=== PATIENT | male | born 1975 | race Caucasian/White ===

== ENCOUNTER 2020-10-23 10:50 | Emergency (ER) | payer OTHER, SELFPAY ==
--- NOTE | ~2020-10-23 | XR_ITS ---
EXAMINATION: XR hand LT 2V DATE: 10/23/2020 12:17 INDICATION: Postreduction second digit dislocation TECHNIQUE: Posteroanterior and lateral views of the left hand were obtained. COMPARISON: None. FINDINGS: Successful reduction of the previously dislocated left second proximal interphalangeal joint. Alignme nt is now normal. No fracture. Joint spaces are normal. Residual mild soft tissue swelling at the pro ximal aspect of the second digit. IMPRESSION: 1. Successful reduction to anatomic alignment of the left second proximal interphalangeal joint. No f racture. Reviewed, dictated and finalized at location A. ION GATEMAN IMPRESSION: 1. Successful reduction to anatomic alignment of the left second proximal inter phalangeal joint. No fracture.
--- NOTE | ~2020-10-23 | XR_ITS ---
EXAMINATION: XR hand LT min 3V DATE: 10/23/2020 11:03 INDICATION: Left index finger injury playing basketball. TECHNIQUE: Posteroanterior, oblique and lateral views of the left hand were obtained. COMPARISON: None. FINDINGS: Dorsal dislocation at the second proximal interphalangeal joint. Alignment and joint spaces are amarilis l throughout the remainder of the left hand. No evident fracture. IMPRESSION: 1. Dorsal dislocation at the left second proximal interphalangeal joint. Reviewed, dictated and finalized at location A. GE TENDER
[2020-10-23 10:55] VITALS: BP 141/83; PULSE 93; RESP 18; TEMP 36.8; O2SAT 96
--- NOTE | 2020-10-23 11:59 | ED.UPPEXIN ---
HPI - Extremity Injury (Upper) General Chief Complaint: Extremity Injury, Upper Stated Complaint: left index finger injury Time Seen by Provider: 10/23/20 10:55 Source: patient Mode of arrival: ambulatory Limitations: no limitations History of Present Illness HPI narrative: Patient is a 45-year-old male who presents with injury to left index finger while playing basketball. Deformity noted. Patient denies other injuries. Patient denies taking pain medication prior to arrival. MD complaint: injury to: left and finger Related Data Home Medications Medication Instructions Recorded Confirmed No Home Medications 10/23/20 10/23/20 Allergies Allergy/AdvReac Type Severity Reaction Status Date / Time No Known Allergies Allergy Verified 10/23/20 10:57 Review of Systems Review of Systems: Narrative: CONSTITUTIONAL: Denies fever, chills, or sweats. EYES: Denies visual changes, redness, or discharge. ENT: Denies rhinorrhea, congestion, sore throat, or otalgia. CARDIOVASCULAR: Denies chest pain, palpitations, or edema. RESPIRATORY: Denies cough or dyspnea. GASTROINTESTINAL: Denies abdominal pain, nausea, vomiting, or diarrhea. GENITOURINARY: Denies dysuria or hematuria. SKIN: Denies rash or itching. MUSCULOSKELETAL: Left index finger pain NEUROLOGIC: Denies headache, numbness, dizziness, or weakness. PSYCHIATRIC: Denies anxiety or depression. PMFSH Past Medical History Medical History (Updated 10/23/20 @ 12:18 by ANNELIESE Chowdary) No significant past medical history Surgical History Surgical History (Updated 10/23/20 @ 12:14 by ANNELIESE Chowdary) No significant past surgical history Family History Family History (Updated 10/23/20 @ 12:15 by ANNELIESE Chowdary) Other No significant family history Social History Social History Smoking status: Never smoker Alcohol intake: current Alcohol use details: Occasional Substance use: never Living arrangements: with family Gender identity (if verbalized by the patient): Male Exam Narrative: Exam Narrative: GENERAL: Well-appearing, well-nourished, and in no acute distress. HEAD: Normocephalic, atraumatic. EYES: No redness or drainage. ENT: Mucous membranes pink and moist. CHEST: No respiratory distress. EXTREMITIES: Visible deformity of the left index finger, dislocation per x-ray SKIN: Warm, dry, no rash. NEURO: No focal deficits. Alert and oriented x3. Gait steady. PSYCH: Normal affect. No signs of depression or anxiety. Course Vital Signs Vital signs: Vital Signs Temperature 36.8 C 10/23/20 10:55 Pulse Rate 93 10/23/20 10:55 Respiratory Rate 18 10/23/20 10:55 Blood Pressure 141/83 H 10/23/20 10:55 Pulse Oximetry 96 10/23/20 10:55 Temperature 36.8 C 10/23/20 10:55 Pulse Rate 93 10/23/20 10:55 Respiratory Rate 18 10/23/20 10:55 Blood Pressure 141/83 H 10/23/20 10:55 Pulse Oximetry 96 10/23/20 10:55 Procedures Orthopedic Joint Reduction Joint #1: Orthopedic Joint Reduction Date: 10/23/20 Orthopedic Joint Reduction Time: 12:16 Side: left Joint Reduction Location: other (Finger) Pre-Procedure Neuro Vascular Exam: normal Local Anesthesia: lidocaine 1% Amount of anesthesic used (mL): 4 Post-reduction neuro exam: intact Post-reduction vascular: intact Post Reduction X-Ray Obtained: Yes Post Reduction X-Ray Results: reduced Splint Applied: Yes Patient Tolerated Procedure: well MDM - Extremity Injury (Upper) Differential Diagnosis Differential diagnosis: Likely finger sprain, dislocation of finger and fracture of hand Critical Care Time Critical Care Time Critical Care Time: No Discharge Plan Discharge Clinical Impression: Dislocation closed, finger Patient Disposition: Home, Self-Care Condition: Stable Instructions: Antibiotic Form
== END 2020-10-23 13:27 | disposition home or self-care (01) ==
PROVIDERS: Emergency Provider Nurse Practitioner; PCP Family Medicine
DX: S63.281A Dislocation of proximal interphalangeal joint of left index finger, initial encounter (principal); X58.XXXA Exposure to other specified factors, initial encounter; Y93.67 Activity, basketball
CPT/HCPCS: 26775; 73120; 73130; 99285